=== PATIENT | female | born 1985 ===

== ENCOUNTER → 2021-09-03 09:48 | Outpatient (BNVA) | payer BC, SELFPAY | PROVIDERS: PCP Nurse Practitioner Primary Care; Visit Provider Surgery | DX: K62.89 Other specified diseases of anus and rectum (principal); F32.A Depression, unspecified; Z88.6 Allergy status to analgesic agent; Z79.891 Long term (current) use of opiate analgesic; Z79.899 Other long term (current) drug therapy | CPT/HCPCS: 46600 ==